=== PATIENT | female | born 1955 | race Caucasian/White ===

== ENCOUNTER 2020-02-08 13:19 | Emergency (ER) | payer OTHER ==
[2020-02-08 13:26] VITALS: RESP 18
--- NOTE | 2020-02-08 13:55 | ED ---
General Adult HPI - General Chief complaint: Chest Pain Stated complaint: Chest Pain Time Seen by Provider: 02/08/20 13:27 Source: patient Mode of arrival: ambulatory Limitations: no limitations - History of Present Illness Initial comments: Dictation was produced using [employer] dictation software. please excuse any grammatical, word or spelling errors. This patient was cared for during a federal and state declared state of emergency secondary to Covid 19 Chief Complaint: 64-year-old female with no known medical comorbidities presents today with chest discomfort History of Present Illness: Is 64-year-old female she was at work when she decided to leave to be brought to the emergency department for evaluation of chest discomfort. She refuses to identify her symptoms as pain. She is not sure if it's muscle spasms from her work. 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 Patient denies any history of cardiac disease. She describes the pain as like a buzzing sensation in her left anterior chest. She reports that it seems to be limited morewith exertional activity however does occur at rest. She denies it as pain. No associated diaphoresis nausea vomiting or dizziness. Patient states she's been having symptoms for 4 days. She denies any shortness of breath. She was tested at work for Covid that was negative this morning. The ROS documented in this emergency department record has been reviewed and confirmed by me. Those systems with pertinent positive or negative responses have been documented in the HPI. All other systems are other negative and/or noncontributory. PHYSICAL EXAM: General Impression: Alert and oriented x3, not in acute distress HEENT: Normocephalic atraumatic, extra-ocular movements intact, pupils equal and reactive to light bilaterally, mucous membranes moist. Cardiovascular: Heart regular rate and rhythm Chest: Able to complete full sentences, no retractions, no tachypnea Abdomen: abdomen soft, non-tender, non-distended, no organomegaly Musculoskeletal: Pulses present and equal in all extremities, no peripheral edema Motor: no focal deficits noted Neurological: CN II-XII grossly intact, no focal motor or sensory deficits noted Skin: Intact with no visualized rashes Psych: Normal affect and mood ED course: 64-year-old male presents with atypical chest pain. All signs upon arrival shows blood pressure 215/114, rest vital signs within acceptable limits. Patient states that she does have normally high blood pressures. She does not see a doctor for this. Laboratory evaluation obtained. CBC unremarkable. Coag panel is negative. Metabolic panel is negative. Cardiac enzymes negative. Chest x-ray is nonacute. Patient's pain is very atypical. She is to be healthy without any cardiac risk factors. Patient discharged told to follow-up with primary care physician for outpatient evaluation of chest pain and to address her high blood pressure issues. EKG interpretation: Ventricular rate 72, normal sinus rhythm,. Interval 170, QRS 86, QTC 459. No TN prolongation, no QTC prolongation, no ST or T-wave changes noted. Overall, this EKG is unremarkable - Related Data Home Medications Medication Instructions Recorded Confirmed Naproxen Sodium [Aleve] 440 mg PO Q12H PRN 02/08/20 02/08/20 Allergies Allergy/AdvReac Type Severity Reaction Status Date / Time No Known Allergies Allergy Verified 02/08/20 14:03 Review of Systems ROS Statement: Those systems with pertinent positive or pertinent negative responses have been documented in the HPI. ROS Other: All systems not noted in ROS Statement are negative. Past Medical History Past Medical History: No Reported History History of Any Multi-Drug Resistant Organisms: None Reported Past Surgical History: Appendectomy, Cholecystectomy, Tonsillectomy Past Psychological History: No Psychological Hx Reported Smoking Status: Current every day smoker Past Alcohol Use History: Occasional Past Drug Use History: None Reported General Exam Limitations: no limitations Course Vital Signs 02/08/20 02/08/20 13:23 14:15 Temperature 98.1 F Pulse Rate 72 67 Respiratory 18 18 Rate Blood Pressure 215/114 155/82 O2 Sat by Pulse 99 97 Oximetry Medical Decision Making - Lab Data Result diagrams: 02/08/20 14:12 02/08/20 14:12 Lab Results 02/08/20 02/08/20 02/08/20 Range/Units 14:12 14:12 14:12 WBC 8.6 (3.8-10.6) k/uL RBC 4.77 (3.80-5.40) m/uL Hgb 15.0 (11.4-16.0) gm/dL Hct 44.6 (34.0-46.0) % MCV 93.6 (80.0-100.0) fL MCH 31.4 (25.0-35.0) pg MCHC 33.6 (31.0-37.0) g/dL RDW 12.6 (11.5-15.5) % Plt Count 317 (150-450) k/uL MPV 7.5 Neutrophils % 63 % Lymphocytes % 28 % Monocytes % 5 % Eosinophils % 2 % Basophils % 1 % Neutrophils # 5.4 (1.3-7.7) k/uL Lymphocytes # 2.4 (1.0-4.8) k/uL Monocytes # 0.4 (0-1.0) k/uL Eosinophils # 0.2 (0-0.7) k/uL Basophils # 0.1 (0-0.2) k/uL PT 10.3 (9.0-12.0) sec INR 1.0 (<1.2) APTT 25.5 (22.0-30.0) sec Sodium 137 (137-145) mmol/L Potassium 4.5 (3.5-5.1) mmol/L Chloride 108 H (98-107) mmol/L Carbon Dioxide 22 (22-30) mmol/L Anion Gap 7 mmol/L BUN 7 (7-17) mg/dL Creatinine 0.64 (0.52-1.04) mg/dL Est GFR (CKD-EPI)AfAm >90 (>60 ml/min/1.73 sqM) Est GFR (CKD-EPI)NonAf >90 (>60 ml/min/1.73 sqM) Glucose 95 (74-99) mg/dL Calcium 9.3 (8.4-10.2) mg/dL Magnesium 2.1 (1.6-2.3) mg/dL Total Bilirubin 0.8 (0.2-1.3) mg/dL AST 35 (14-36) U/L ALT 13 (4-34) U/L Alkaline Phosphatase 78 (38-126) U/L Troponin I (0.000-0.034) ng/mL Total Protein 7.1 (6.3-8.2) g/dL Albumin 4.3 (3.5-5.0) g/dL 02/08/20 Range/Units 14:12 WBC (3.8-10.6) k/uL RBC (3.80-5.40) m/uL Hgb (11.4-16.0) gm/dL Hct (34.0-46.0) % MCV (80.0-100.0) fL MCH (25.0-35.0) pg MCHC (31.0-37.0) g/dL RDW (11.5-15.5) % Plt Count (150-450) k/uL MPV Neutrophils % % Lymphocytes % % Monocytes % % Eosinophils % % Basophils % % Neutrophils # (1.3-7.7) k/uL Lymphocytes # (1.0-4.8) k/uL Monocytes # (0-1.0) k/uL Eosinophils # (0-0.7) k/uL Basophils # (0-0.2) k/uL PT (9.0-12.0) sec INR (<1.2) APTT (22.0-30.0) sec Sodium (137-145) mmol/L Potassium (3.5-5.1) mmol/L Chloride (98-107) mmol/L Carbon Dioxide (22-30) mmol/L Anion Gap mmol/L BUN (7-17) mg/dL Creatinine (0.52-1.04) mg/dL Est GFR (CKD-EPI)AfAm (>60 ml/min/1.73 sqM) Est GFR (CKD-EPI)NonAf (>60 ml/min/1.73 sqM) Glucose (74-99) mg/dL Calcium (8.4-10.2) mg/dL Magnesium (1.6-2.3) mg/dL Total Bilirubin (0.2-1.3) mg/dL AST (14-36) U/L ALT (4-34) U/L Alkaline Phosphatase (38-126) U/L Troponin I <0.012 (0.000-0.034) ng/mL Total Protein (6.3-8.2) g/dL Albumin (3.5-5.0) g/dL Disposition Clinical Impression: Chest pain Disposition: HOME SELF-CARE Condition: Good Instructions (If sedation given, give patient instructions): Chest Pain (ED) Is patient prescribed a controlled substance at d/c from ED?: No Referrals: None,Stated [Primary Care Provider] - 1-2 days Time of Disposition: 14:58
[2020-02-08 14:27] LABS: Basophils # (A) 0.1 k/uL (0-0.2); Basophils % (A) 1 %; Eosinophils # (A) 0.2 k/uL (0-0.7); Eosinophils % (A) 2 %; HCT 44.6 % (34.0-46.0); Lymphocytes # (A) 2.4 k/uL (1.0-4.8); Lymphocytes % (A) 28 %; MCH 31.4 pg (25.0-35.0); MCHC 33.6 g/dL (31.0-37.0); MCV 93.6 fL (80.0-100.0); Mean Platelet Volume 7.5; Monocytes # (A) 0.4 k/uL (0-1.0); Monocytes % (A) 5 %; Neutrophils # (A) 5.4 k/uL (1.3-7.7); Neutrophils % (A) 63 %; Platelet Count 317 k/uL (150-450); RBC 4.77 m/uL (3.80-5.40); RDW 12.6 % (11.5-15.5); WBC 8.6 k/uL (3.8-10.6)
[2020-02-08 14:37] LABS: ALT 13 U/L (4-34); AST 35 U/L (14-36); African American GFR (CKD) >90 (>60 ml/min/1.73 sqM); Albumin 4.3 g/dL (3.5-5.0); Alkaline Phosphatase 78 U/L (38-126); Anion Gap 7 mmol/L; Blood Urea Nitrogen 7 mg/dL (7-17); Calcium 9.3 mg/dL (8.4-10.2); Carbon Dioxide 22 mmol/L (22-30); Chloride 108 mmol/L (98-107); Glucose 95 mg/dL (74-99); Magnesium 2.1 mg/dL (1.6-2.3); Non-African American GFR(CKD) >90 (>60 ml/min/1.73 sqM); Potassium 4.5 mmol/L (3.5-5.1); Sodium 137 mmol/L (137-145); Total Bilirubin 0.8 mg/dL (0.2-1.3); Total Protein 7.1 g/dL (6.3-8.2)
[2020-02-08 14:38] LABS: Partial Thromboplastin Time 25.5 sec (22.0-30.0); Prothrombin Time 10.3 sec (9.0-12.0)
[2020-02-08 15:25] VITALS: BP 169/87; PULSE 70; TEMP 98
--- NOTE | 2020-02-08 16:23 | XR ---
EXAMINATION TYPE: XR chest 2V DATE OF EXAM: 02/08/2020 COMPARISON: None HISTORY: 64-year-old female with chest pain TECHNIQUE: PA and lateral views FINDINGS: The cardiomediastinal silhouette, aorta, and pulmonary vasculature are within normal limits. Lungs an d pleural spaces are clear. IMPRESSION: No acute cardiopulmonary process.
== END 2020-02-08 15:24 | disposition home or self-care (01) ==
LOC: EC 13:19
DX: R07.89 Other chest pain (principal); I10 Essential (primary) hypertension; F17.200 Nicotine dependence, unspecified, uncomplicated
CPT/HCPCS: 36415; 71046; 80053; 83735; 84484; 85025; 85610; 85730; 93005; 99285

== ENCOUNTER 2022-08-29 15:59 | Inpatient (IN) | payer MEDICARE, OTHER ==
--- NOTE | 2022-08-29 16:42 | XR ---
EXAMINATION TYPE: XR chest 2V DATE OF EXAM: 08/29/2022 4:36 PM COMPARISON: Chest radiographs from 02/08/2020. TECHNIQUE: XR chest 2V Frontal and lateral views of the chest. CLINICAL INDICATION:Female, 66 years old with history of COUGH WEAKNESS; FINDINGS: Lungs/Pleura: There is flattening of the diaphragm with increased lucency of the lungs. No evidence o f pneumothorax, pleural effusion or focal consolidation. Pulmonary vascularity: Unremarkable. Heart/mediastinum: Cardiomediastinal silhouette is unremarkable. Musculoskeletal: No acute osseous pathology. IMPRESSION: 1. No acute cardiopulmonary disease process. 2. COPD changes.
[2022-08-29 17:38] LABS: Partial Thromboplastin Time 26.9 sec (22.0-30.0); Prothrombin Time 10.8 sec (9.0-12.0)
[2022-08-29 17:39] LABS: Basophils # (A) 0.1 k/uL (0-0.2); Basophils % (A) 0 %; Eosinophils # (A) 0.4 k/uL (0-0.7); Eosinophils % (A) 2 %; HCT 37.2 % (34.0-46.0); HGB 11.7 gm/dL (11.4-16.0); Hypochromasia Slight; Lymphocytes % (A) 8 %; MCH 30.5 pg (25.0-35.0); MCHC 31.4 g/dL (31.0-37.0); MCV 97.1 fL (80.0-100.0); Mean Platelet Volume 7.7; Monocytes # (A) 0.9 k/uL (0-1.0); Monocytes % (A) 3 %; Neutrophils % (A) 86 %; RBC 3.83 m/uL (3.80-5.40); RDW 13.5 % (11.5-15.5); WBC 26.6 k/uL (3.8-10.6)
[2022-08-29 17:46] LABS: ALT 89 U/L (4-34); AST 198 U/L (14-36); African American GFR (CKD) 78 (>60 ml/min/1.73 sqM); Albumin 2.9 g/dL (3.5-5.0); Alkaline Phosphatase 298 U/L (38-126); Anion Gap 11 mmol/L; Blood Urea Nitrogen 19 mg/dL (7-17); Calcium 8.6 mg/dL (8.4-10.2); Carbon Dioxide 24 mmol/L (22-30); Chloride 103 mmol/L (98-107); Glucose 112 mg/dL (74-99); Non-African American GFR(CKD) 67 (>60 ml/min/1.73 sqM); Potassium 4.4 mmol/L (3.5-5.1); Sodium 138 mmol/L (137-145); Total Bilirubin 0.6 mg/dL (0.2-1.3); Total Protein 6.2 g/dL (6.3-8.2)
[2022-08-29] MEDS ORDERED: SODIUM CHLORIDE 0.9% 500 ML 500 ML IV STA (17:51)
--- NOTE | 2022-08-29 17:52 | ED ---
Recheck HPI - General Chief Complaint: Recheck/Abnormal Lab/Rx Stated Complaint: ABN LABS Time Seen by Provider: 08/29/22 16:57 Source: patient Mode of arrival: ambulatory Limitations: no limitations - History of Present Illness Initial Comments: This patient is a 66-year-old woman who presents here after receiving a phone call from her primary physician's office telling her that a number of lab tests she had yesterday were abnormal. The patient states that she had gone to see Dr. Gomez because she was feeling some fatigue and generalized weakness. She states that her legs were achy. She states it felt like she had done some exercise but really hadn't. She had gone to the clinic yesterday and had blood drawn. She states that today she was feeling better but she received a phone call telling her to go to the emergency department have some lab tests repeated. Currently patient denies fever or chills. No chest pain, dyspnea or cough. No back or abdominal pain. She does have a little bit of myalgia. No change in urination or bowel movements noted MD Complaint: abnormal lab -: days(s) Returns Today for: Called Because of Abnormal Lab/Test Symptoms Since Prior Visit: improved Context: called for abnormal lab result Associated Symptoms: malaise, other - Related Data Previous Rx's Medication Instructions Recorded amLODIPine [Norvasc] 5 mg PO DAILY #30 tab 08/31/22 Allergies Allergy/AdvReac Type Severity Reaction Status Date / Time No Known Allergies Allergy Verified 08/29/22 20:36 Review of Systems ROS Statement: Those systems with pertinent positive or pertinent negative responses have been documented in the HPI. ROS Other: All systems not noted in ROS Statement are negative. Constitutional: Denies: fever, chills Respiratory: Denies: cough, dyspnea Cardiovascular: Denies: chest pain, palpitations Endocrine: Reports: fatigue Gastrointestinal: Denies: abdominal pain, nausea, vomiting Genitourinary: Denies: dysuria, hematuria Musculoskeletal: Reports: myalgia. Denies: back pain, arthralgia Skin: Denies: rash Neurological: Denies: headache, weakness, numbness Past Medical History Past Medical History: Hypertension History of Any Multi-Drug Resistant Organisms: None Reported Past Surgical History: Appendectomy, Cholecystectomy, Tonsillectomy Past Psychological History: No Psychological Hx Reported Smoking Status: Current every day smoker Past Alcohol Use History: Occasional Past Drug Use History: None Reported General Exam Limitations: no limitations General appearance: alert, in no apparent distress Head exam: Present: atraumatic, normocephalic Eye exam: Present: normal appearance. Absent: scleral icterus, conjunctival injection Neck exam: Present: normal inspection Respiratory exam: Present: normal lung sounds bilaterally. Absent: respiratory distress, wheezes, rales, rhonchi, stridor, accessory muscle use Cardiovascular Exam: Present: regular rate, normal rhythm, normal heart sounds. Absent: systolic murmur, diastolic murmur, rubs, gallop GI/Abdominal exam: Present: soft. Absent: distended, tenderness, guarding, rebound, rigid, mass Extremities exam: Present: normal inspection, normal capillary refill. Absent: pedal edema, calf tenderness Back exam: Present: normal inspection. Absent: CVA tenderness (R), CVA tenderness (L) Neurological exam: Present: alert Skin exam: Present: warm, dry, intact, normal color. Absent: rash Course Vital Signs 08/29/22 08/29/22 08/29/22 16:02 17:01 21:42 Temperature 97.8 F 98.3 F Pulse Rate 117 H 105 H 82 Respiratory 20 18 18 Rate Blood Pressure 143/74 142/80 163/80 O2 Sat by Pulse 98 99 97 Oximetry Medical Decision Making - Medical Decision Making This patient is 66-year-old woman here for repeat lab testing after finding hematologic abnormalities on routine testing yesterday. The patient does have leukocytosis and thrombocytosis. Discussed case with Dr. [place], who states that they would see the patient in the hospital for some additional workup. Case discussed with sound physician who will admit. The patient had chest x-ray which I interpreted as being negative for acute infiltrate, pneumothorax, congestive heart failure Was pt. sent in by a medical professional or institution (, PA, WOOD SCRAP HANDLER, urgent care, hospital, or alf...) When possible be specific @ -[The patient was directed to emergency department by her physician after abnormal lab tests Did you speak to anyone other than the patient for history (EMS, parent, family, police, friend...)? What history was obtained from this source @ -[No] Did you review nursing and triage notes (agree or disagree)? Why? @ -[I reviewed and agree with nursing and triage notes] Were old charts reviewed (outside hosp., previous admission, EMS record, old EKG, old radiological studies, urgent care reports/EKG's, alf records)? Report findings @ -[ old charts were reviewed] Differential Diagnosis (chest pain, altered mental status, abdominal pain women, abdominal pain men, vaginal bleeding, weakness, fever, dyspnea, syncope, heada davi, dizziness, GI bleed, back pain, seizure, CVA, palpatations, mental health, musculoskeletal)? @ -[Differential Weakness: Hypoglycemia, shock, sepsis, hyponatremia, anemia, infection, CA, ETOH, adverse medicine reaction, overdose, stroke, this is not meant to be an all-inclusive list. EKG interpreted by me (3pts min.). @ -[As above] X-rays interpreted by me (1pt min.). @ -[As above CT interpreted by me (1pt min.). @ -[None done] U/S interpreted by me (1pt. min.). @ -[None done] What testing was considered but not performed or refused? (CT, X-rays, U/S, labs)? Why? @ -[None] What meds were considered but not given or refused? Why? @ -[None] Did you discuss the management of the patient with other professionals (professionals i.e. , PA, WOOD SCRAP HANDLER, lab, RT, psych nurse, social work job titles, mail sorter, teacher, chief clinical officer, catalytic case operator)? Give summary @ -[This case was discussed with the oncologist as well as the admitting physician. Was smoking cessation discussed for >3mins.? @ -[No] Was critical care preformed (if so, how long)? @ -[No] Were there social determinants of health that impacted care today? How? (H omelessness, low income, unemployed, alcoholism, drug addiction, transportation, low edu. Level, literacy, decrease access to med. care, long term, rehab)? @ -[No] Was there de-escalation of care discussed even if they declined (Discuss DNR or withdrawal of care, Hospice)? DNR status @ -[No] What co-morbidities impacted this encounter? (DM, HTN, Smoking, COPD, CAD, Cancer, CVA, ARF, Chemo, Hep., AIDS, mental health diagnosis, sleep apnea, morbid obesity)? @ -[None] Was patient admitted / discharged? Hospital course, mention meds given and route, prescriptions, significant lab abnormalities, going to OR and other pertinent info. @ -[Patient is admitted for further testing and for hematology consultation. Undiagnosed new problem with uncertain prognosis? @ -[No] Drug Therapy requiring intensive monitoring for toxicity (Heparin, Nitro, Insulin, Cardizem)? @ -[No] Were any procedures done? @ -[No] Diagnosis/symptom? @ -[Acute leukocytosis Acute thrombocytosis Acute, or Chronic, or Acute on Chronic? @ -[Acute Uncomplicated (without systemic symptoms) or Complicated (systemic symptoms)? @ -[Uncomplicated Side effects of treatment? @ -[No] Exacerbation, Progression, or Severe Exacerbation? @ -[No] Poses a threat to life or bodily function? How? (Chest pain, USA, CA, pneumonia, PE, COPD, DKA, ARF, appy, cholecystitis, CVA, Diverticulitis, Homicidal, Suicidal, threat to staff... and all critical care pts) @ -[No] - Lab Data Result diagrams: 08/31/22 05:51 08/31/22 05:51 Lab Results 08/29/22 08/29/22 08/29/22 Range/Units 16:55 16:55 16:55 WBC 26.6 H (3.8-10.6) k/uL RBC 3.83 (3.80-5.40) m/uL Hgb 11.7 (11.4-16.0) gm/dL Hct 37.2 (34.0-46.0) % MCV 97.1 (80.0-100.0) fL MCH 30.5 (25.0-35.0) pg MCHC 31.4 (31.0-37.0) g/dL RDW 13.5 (11.5-15.5) % Plt Count 1085 H* (150-450) k/uL MPV 7.7 Neutrophils % 86 % Lymphocytes % 8 % Monocytes % 3 % Eosinophils % 2 % Basophils % 0 % Neutrophils # 23.0 H (1.3-7.7) k/uL Lymphocytes # 2.0 (1.0-4.8) k/uL Monocytes # 0.9 (0-1.0) k/uL Eosinophils # 0.4 (0-0.7) k/uL Basophils # 0.1 (0-0.2) k/uL Manual Slide Review Performed Hypochromasia Slight PT 10.8 (9.0-12.0) sec INR 1.0 (<1.2) APTT 26.9 (22.0-30.0) sec Sodium 138 (137-145) mmol/L Potassium 4.4 (3.5-5.1) mmol/L Chloride 103 (98-107) mmol/L Carbon Dioxide 24 (22-30) mmol/L Anion Gap 11 mmol/L BUN 19 H (7-17) mg/dL Creatinine 0.89 (0.52-1.04) mg/dL Est GFR (CKD-EPI)AfAm 78 (>60 ml/min/1.73 sqM) Est GFR (CKD-EPI)NonAf 67 (>60 ml/min/1.73 sqM) Glucose 112 H (74-99) mg/dL Calcium 8.6 (8.4-10.2) mg/dL Total Bilirubin 0.6 (0.2-1.3) mg/dL AST 198 H (14-36) U/L ALT 89 H (4-34) U/L Alkaline Phosphatase 298 H (38-126) U/L Creatine Kinase <20 L (30-135) U/L CK-MB (CK-2) (0.0-2.4) ng/mL Total Protein 6.2 L (6.3-8.2) g/dL Albumin 2.9 L (3.5-5.0) g/dL 08/29/22 Range/Units 16:55 WBC (3.8-10.6) k/uL RBC (3.80-5.40) m/uL Hgb (11.4-16.0) gm/dL Hct (34.0-46.0) % MCV (80.0-100.0) fL MCH (25.0-35.0) pg MCHC (31.0-37.0) g/dL RDW (11.5-15.5) % Plt Count (150-450) k/uL MPV Neutrophils % % Lymphocytes % % Monocytes % % Eosinophils % % Basophils % % Neutrophils # (1.3-7.7) k/uL Lymphocytes # (1.0-4.8) k/uL Monocytes # (0-1.0) k/uL Eosinophils # (0-0.7) k/uL Basophils # (0-0.2) k/uL Manual Slide Review Hypochromasia PT (9.0-12.0) sec INR (<1.2) APTT (22.0-30.0) sec Sodium (137-145) mmol/L Potassium (3.5-5.1) mmol/L Chloride (98-107) mmol/L Carbon Dioxide (22-30) mmol/L Anion Gap mmol/L BUN (7-17) mg/dL Creatinine (0.52-1.04) mg/dL Est GFR (CKD-EPI)AfAm (>60 ml/min/1.73 sqM) Est GFR (CKD-EPI)NonAf (>60 ml/min/1.73 sqM) Glucose (74-99) mg/dL Calcium (8.4-10.2) mg/dL Total Bilirubin (0.2-1.3) mg/dL AST (14-36) U/L ALT (4-34) U/L Alkaline Phosphatase (38-126) U/L Creatine Kinase (30-135) U/L CK-MB (CK-2) 0.3 (0.0-2.4) ng/mL Total Protein (6.3-8.2) g/dL Albumin (3.5-5.0) g/dL - EKG Data -: EKG Interpreted by Ut EKG shows normal: sinus rhythm, axis (Normal), intervals (Normal), QRS complexes (Normal), ST-T waves (Normal) Rate: tachycardia (Rate 113 bpm) Disposition Clinical Impression: Leukocytosis, Thrombocytosis Disposition: ADMITTED IP TO THIS [facility] Condition: Good Is patient prescribed a controlled substance at d/c from ED?: No
[2022-08-29 18:25] LABS: Platelet Count 1085 k/uL (150-450)
[2022-08-29 19:25] LABS: Creatine Kinase <20 U/L (30-135)
[2022-08-29] MEDS ORDERED: ACETAMINOPHEN TAB 325 MG TAB PO PRN (20:20)
[2022-08-29] MEDS ORDERED: NALOXONE 0.4 MG/ML 1 ML VIAL IV PRN (20:20)
[2022-08-29] MEDS ORDERED: MAG HYDROX/AL HYDROX/SIMETH 30 ML CUP PO PRN (20:20)
[2022-08-29] MEDS ORDERED: SODIUM CHLORIDE 0.9% 1,000 ML IV SCH (20:30)
--- NOTE | 2022-08-30 03:01 | P.HPIM ---
History of Present Illness H&P Date: 08/29/22 Chief Complaint: abnormal blood work 66 year old female with no significant past medical history patient was doing routine blood work with her PCP , when she was called with abnormal results and told to go to the hospital for evaluation by hematology she denies any fever, chills, headache, focal neuro deficits, nausea , vomiting, abd pain , or GI bleeding , denies any recent illness or hospital stay she was found to have elevated WBC and platelets. patient admits to smoking , denies any illicit drugs or alcohol patient does reports some night sweats episodes , but denies any significant weight loss. Review of Systems Pertinent positives as noted in HPI. All other systems were reviewed and are negative Past Medical History Past Medical History: Hypertension History of Any Multi-Drug Resistant Organisms: None Reported Past Surgical History: Appendectomy, Cholecystectomy, Tonsillectomy Past Psychological History: No Psychological Hx Reported Smoking Status: Current every day smoker Past Alcohol Use History: Occasional Past Drug Use History: None Reported Medications and Allergies Home Medications Medication Instructions Recorded Confirmed Type No Known Home Medications 08/29/22 08/29/22 History Allergies Allergy/AdvReac Type Severity Reaction Status Date / Time No Known Allergies Allergy Verified 08/29/22 20:36 Physical Exam Vitals: Vital Signs Temp Pulse Pulse Resp BP BP Pulse Ox 08/30/22 01:47 100.2 F H 110 H 18 133/63 94 L 08/29/22 21:56 100.1 F H 114 H 17 136/74 96 08/29/22 21:42 82 18 163/80 97 08/29/22 17:01 98.3 F 105 H 18 142/80 99 08/29/22 16:02 97.8 F 117 H 20 143/74 98 Intake and Output 08/29/22 08/29/22 08/30/22 14:59 22:59 06:59 Other: # Voids 1 Weight 66.678 kg Constitutional: No acute distress, conversant, pleasant Eyes: Anicteric sclerae, moist conjunctiva, Pupils equal round reactive to light ENMT: NC/AT Oropharynx clear, no erythema, or exudates Neck: Supple, no masses, or JVD No carotid bruits No thyromegaly Lungs: Clear to auscultation Clear to percussion Normal respiratory effort, no accessory muscle use Cardiovascular: Heart regular in rate and rhythm, No murmurs, gallops, or rubs No peripheral edema Abdominal: Soft Nontender, no guarding, rebound or rigidity Abdomen moving with respiration Normoactive bowel sounds No palpable mass No abdominal wall hernia noted Skin: Normal temperature, tone, texture, turgor Extremities: No digital cyanosis No clubbing Pedal pulses intact and symmetrical Radial pulses intact and symmetrical No calf tenderness Psychiatric: Alert and oriented to person, place and time Appropriate affect Neuro Muscles Strength 5/5 in all 4 extremities Sensation to light touch grossly present throughout Cranial nerves II-XII grossly intact Lymphatics: no palpable cervical or supraclavicular lymph nodes Results CBC & Chem 7: 08/29/22 16:55 08/29/22 16:55 Labs: Abnormal Lab Results - Last 24 Hours (Table) 08/29/22 08/29/22 Range/Units 16:55 16:55 WBC 26.6 H (3.8-10.6) k/uL Plt Count 1085 H* (150-450) k/uL Neutrophils # 23.0 H (1.3-7.7) k/uL BUN 19 H (7-17) mg/dL Glucose 112 H (74-99) mg/dL AST 198 H (14-36) U/L ALT 89 H (4-34) U/L Alkaline Phosphatase 298 H (38-126) U/L Creatine Kinase <20 L (30-135) U/L Total Protein 6.2 L (6.3-8.2) g/dL Albumin 2.9 L (3.5-5.0) g/dL Thrombosis Risk Factor Assmnt - Choose All That Apply Any of the Below Risk Factors Present?: No Each Risk Factor Represents 2 Points: Age 61-74 years Thrombosis Risk Factor Assessment Total Risk Factor Score: 2 Thrombosis Risk Factor Assessment Level: Low Risk Assessment and Plan Assessment: 66 year old female with no signficant past medical history coming in for abnormal blood work , i discussed the case with ED doc , and i accepted the admission for hematology workup with anticipated length of stay < 2 midnights leukocytosis and thrombocytosis check ferritin check blood cultures hematolgoy consult D5 0.45% at 75 cc per hour initiate hydroxyurea and low dose aspirin patient counseled to discontinue smoking new hypertension initiate on amlodipine 5 mg po daily blood work showed platelet count > 1 mil WBC 26 liver enzymes elevated AST 198, ALT 89, ALK phos 298 check abd US , assess spleen and liver full code DVT PPX heparin sc tid 5000 units
[2022-08-30] MEDS: DEXTROSE 5%-0.45% NACL 1,000 ML IV SCH ×2 (06:14→17:45)
[2022-08-30 07:35] LABS: Basophils # (A) 0.1 k/uL (0-0.2); Basophils % (A) 0 %; Eosinophils # (A) 0.2 k/uL (0-0.7); Eosinophils % (A) 1 %; HCT 30.8 % (34.0-46.0); Hypochromasia Slight; Lymphocytes # (A) 2.3 k/uL (1.0-4.8); Lymphocytes % (A) 12 %; MCH 29.6 pg (25.0-35.0); MCHC 30.4 g/dL (31.0-37.0); MCV 97.5 fL (80.0-100.0); Mean Platelet Volume 9.1; Monocytes # (A) 0.9 k/uL (0-1.0); Monocytes % (A) 5 %; Neutrophils # (A) 15.6 k/uL (1.3-7.7); Neutrophils % (A) 81 %; Platelet Count 763 k/uL (150-450); RBC 3.16 m/uL (3.80-5.40); RDW 13.6 % (11.5-15.5); WBC 19.2 k/uL (3.8-10.6)
[2022-08-30 07:37] LABS: HGB 9.4 gm/dL (11.4-16.0)
[2022-08-30] MEDS: amLODIPine 5 MG TAB PO SCH (08:26)
[2022-08-30] MEDS: ASPIRIN 81 MG PO SCH (08:26)
[2022-08-30] MEDS: HYDROXYUREA 500 MG CAP PO SCH (08:27)
[2022-08-30] MEDS ORDERED: HYDROXYUREA 500 MG CAP PO SCH (09:00)
--- NOTE | 2022-08-30 09:18 | US ---
EXAMINATION TYPE: US abdomen limited DATE OF EXAM: 08/30/2022 COMPARISON: NONE CLINICAL INDICATION: Female, 66 years old with history of rule out splenomegaly, elevated liver enzym es; TECHNIQUE: Multiple sonographic images of the right upper quadrant are obtained. FINDINGS: EXAM MEASUREMENTS: Liver Length: 14.8 cm Gallbladder Wall: Surgically absent CBD: 0.9 cm Right Kidney: 9.8 x 4.2 x 5.0 cm Spleen 8 cm KELP CUTTER NOTES: Pancreas: Tail obscured by overlying bowel gas Liver: Prominent ligament teres Gallbladder: Surgically absent Evidence for sonographic Devine's sign: No CBD: 9 mm Right Kidney: No hydronephrosis or masses seen IMPRESSION: 1. Postcholecystectomy. Common bile duct measures 9 mm at the upper limits of normal for postcholecys tectomy patient. 2. Spleen is normal in size and appearance.
[2022-08-30 13:12] LABS: Creatine Kinase <20 U/L (30-135)
[2022-08-30 13:25] LABS: C Reactive Protein 24.3 mg/dL (<1.0)
--- NOTE | 2022-08-30 13:43 | P.PN ---
Subjective Progress Note Date: 08/30/22 Hospital Course: 61-year-old female with nicotine dependence presenting from her PCP office after routine blood work, was noted to have leukocytosis and thrombocytosis. She has been having low-grade fevers as well as night sweats. She has not noticed any new rashes, bleeding, new lumps or bumps. In the ED, temperature was 97.8, pulse 117, respiratory rate 20, blood pressure 143/74, saturating at 98% on room air. White blood cell count 26.6, platelet count 1085, elevated transaminases. Chest x-ray no acute process. EKG shows sinus tachycardia. Patient admitted for further workup for possible malignancy. Hematology consulted. Subjective: In seen and examined at bedside. No acute events overnight. No new complaints Pertinent positives and negatives as discussed above, a complete review of systems was performed and all other systems are negative. Vitals Signs Reviewed. General: nontoxic, no distress, appears at stated age Derm: warm, dry Head: atraumatic, normocephalic, symmetric Eyes: EOMI, no lid lag, anicteric sclera Mouth: no lip lesion, mucus membranes moist Cardiovascular: S1S2 reg, no murmur Lungs: CTA bilateral, no rhonchi, no rales , no accessory muscle use Abdominal: soft, nontender to palpation, no guarding, no appreciable organomegaly Ext: no gross muscle atrophy, no edema, no contractures Neuro: CN II-XI grossly intact, no focal neuro deficits Psych: Alert, oriented, appropriate affect Data Reviewed Today: Pertinent Labs: WBC 19.2, hemoglobin 9.4, platelets 763, CRP 24.3, ferritin 1069 Imaging: Liver ultrasound shows CBD 9 mm Assessment and Plan: Active: Leukocytosis Thrombocytosis Normocytic anemia Transaminitis Hypertension Nicotine dependence -Patient has low-grade fevers as well as night sweats, concerning for malignancy -Hematology consulted -already started on hydroxyurea and aspirin -Liver ultrasound does not show any acute liver process -Amlodipine 5 mg daily -Counseled regarding his smoking cessation DVT ppx: Lovenox Code status: Full code Anticipated discharge place: Pending clinical course Anticipated discharge time: Pending clinical course Objective - Vital Signs Vital signs: Vital Signs Temp 98.5 F 08/30/22 12:26 Pulse 93 08/30/22 12:26 Resp 18 08/30/22 12:26 BP 125/67 08/30/22 12:26 Pulse Ox 99 08/30/22 12:26 FiO2 Intake & Output 08/29/22 08/30/22 08/30/22 18:59 06:59 18:59 Intake Total 900 Balance 900 Weight 66.678 kg 66.678 kg Intake: Intake, IV Titration 900 Amount Sodium Chloride 0.9% 1, 900 000 ml @ 75 mls/hr IV . [id number] [facility] Rx#:[id number] Other: Voiding Method Toilet # Voids 1 - Labs CBC & Chem 7: 08/30/22 04:53 08/29/22 16:55 Labs: Abnormal Lab Results - Last 24 Hours (Table) 08/29/22 08/29/22 08/30/22 Range/Units 16:55 16:55 04:53 WBC 26.6 H (3.8-10.6) k/uL RBC (3.80-5.40) m/uL Hgb (11.4-16.0) gm/dL Hct (34.0-46.0) % MCHC (31.0-37.0) g/dL Plt Count 1085 H* (150-450) k/uL Neutrophils # 23.0 H (1.3-7.7) k/uL BUN 19 H (7-17) mg/dL Glucose 112 H (74-99) mg/dL Ferritin 1069.0 H (10.0-291.0) ng/mL AST 198 H (14-36) U/L ALT 89 H (4-34) U/L Alkaline Phosphatase 298 H (38-126) U/L Creatine Kinase <20 L (30-135) U/L C-Reactive Protein (<1.0) mg/dL Total Protein 6.2 L (6.3-8.2) g/dL Albumin 2.9 L (3.5-5.0) g/dL 08/30/22 08/30/22 Range/Units 04:53 12:08 WBC 19.2 H (3.8-10.6) k/uL RBC 3.16 L (3.80-5.40) m/uL Hgb 9.4 L D (11.4-16.0) gm/dL Hct 30.8 L (34.0-46.0) % MCHC 30.4 L (31.0-37.0) g/dL Plt Count 763 H (150-450) k/uL Neutrophils # 15.6 H (1.3-7.7) k/uL BUN (7-17) mg/dL Glucose (74-99) mg/dL Ferritin (10.0-291.0) ng/mL AST (14-36) U/L ALT (4-34) U/L Alkaline Phosphatase (38-126) U/L Creatine Kinase <20 L (30-135) U/L C-Reactive Protein 24.3 H (<1.0) mg/dL Total Protein (6.3-8.2) g/dL Albumin (3.5-5.0) g/dL
[2022-08-30 16:36] LABS: % Iron Saturation 11.56 (12.00-45.00); Iron 17 UG/DL (50-170); Rheumatoid Factor, Qnt <15 IU/mL (0-15); Total Iron Binding Capacity 147 UG/DL (228-460)
[2022-08-30 16:45] LABS: Hepatitis A Antibody IgM Nonreactive; Hepatitis B Core IgM Nonreactive; Hepatitis B Surface Antigen Nonreactive; Hepatitis C IgG Antibody Nonreactive
[2022-08-30 18:59] VITALS: RESP 16
--- NOTE | 2022-08-30 22:53 | P.CONS ---
History of Present Illness - Reason for Consult Consult date: 08/30/22 thrombocytosis/leukocytosis Requesting physician: Anup Tomlin - Chief Complaint weakness, fatigue, leg cramping - History of Present Illness Patient is a 66-year-old female who presented to the ER for abnormal labs. Patient presented to her PCP with complaints of leg cramping over the last 2 weeks and fatigue and generalized weakness at which time a CBC revealed shon kocytosis and thrombocytosis. For which we were consulted for. Upon admission WBCs 26.6, platelets 1085. LFTs elevated. Chest x-ray revealed no acute cardiac cardiopulmonary disease processes. Abdominal ultrasound revealed post cholecystectomy. Common bile duct measures 9 mm at the upper limits of normal for post cholecystectomy patient. Spleen is normal in size and appearance. Patient denies any recent illnesses. Denies cough. Denies fever or chills. Denies urinary frequency and dysuria. Patient denies history of any autoimmune disorders. Counts have improved today, WBC 19.2, platelets 763. T max 100.2 Review of Systems 10 point ROS is negative except as stated in HPI Past Medical History Past Medical History: Hypertension History of Any Multi-Drug Resistant Organisms: None Reported Past Surgical History: Appendectomy, Cholecystectomy, Tonsillectomy Past Psychological History: No Psychological Hx Reported Smoking Status: Current every day smoker Past Alcohol Use History: Occasional Past Drug Use History: None Reported Medications and Allergies Home Medications Medication Instructions Recorded Confirmed Type No Known Home Medications 08/29/22 08/29/22 History Allergies Allergy/AdvReac Type Severity Reaction Status Date / Time No Known Allergies Allergy Verified 08/29/22 20:36 Physical Exam Vitals: Vital Signs Temp Pulse Resp BP Pulse Ox 08/30/22 18:58 98.7 F 121 H 16 148/75 98 08/30/22 12:26 98.5 F 93 18 125/67 99 08/30/22 09:13 99.2 F 08/30/22 07:30 99.8 F H 103 H 16 132/65 94 L 08/30/22 01:47 100.2 F H 110 H 18 133/63 94 L Intake and Output 08/30/22 08/30/22 08/30/22 06:59 14:59 22:59 Intake Total 900 Balance 900 Intake: Intake, IV Titration 900 Amount Sodium Chloride 0.9% 1, 900 000 ml @ 75 mls/hr IV . [id number] [facility] Rx#:[id number] Other: Voiding Method Toilet Toilet # Voids 1 3 - Constitutional General appearance: average body habitus, no acute distress - EENT Eyes: anicteric sclerae, EOMI ENT: hearing grossly normal - Neck Neck: no lymphadenopathy - Respiratory Respiratory: bilateral: CTA - Cardiovascular Rhythm: regular Heart sounds: normal: S1, S2 Abnormal Heart Sounds: no systolic murmur, no diastolic murmur, no rub, no S3 Gallop, no S4 Gallop, no click, no other leg Peripheral Edema: bilateral: None - Gastrointestinal General gastrointestinal: no hepatomegaly, soft, no splenomegaly, no tenderness - Integumentary Integumentary: no cyanotic, no rash - Neurologic Neurologic: CNII-XII intact - Musculoskeletal Musculoskeletal: strength equal bilaterally - Psychiatric Psychiatric: A&O x's 3, appropriate affect, intact judgment & insight Results CBC & Chem 7: 08/30/22 04:53 08/29/22 16:55 Labs: Abnormal Lab Results - Last 24 Hours (Table) 08/30/22 08/30/22 08/30/22 Range/Units 04:53 04:53 12:08 WBC 19.2 H (3.8-10.6) k/uL RBC 3.16 L (3.80-5.40) m/uL Hgb 9.4 L D (11.4-16.0) gm/dL Hct 30.8 L (34.0-46.0) % MCHC 30.4 L (31.0-37.0) g/dL Plt Count 763 H (150-450) k/uL Neutrophils # 15.6 H (1.3-7.7) k/uL ESR 120 H (0-20) mm/hr Iron (50-170) UG/DL TIBC (228-460) UG/DL % Saturation (12.00-45.00) Transferrin (204.0-354.0) mg/dL Ferritin 1069.0 H (10.0-291.0) ng/mL Creatine Kinase (30-135) U/L C-Reactive Protein (<1.0) mg/dL 08/30/22 Range/Units 12:08 WBC (3.8-10.6) k/uL RBC (3.80-5.40) m/uL Hgb (11.4-16.0) gm/dL Hct (34.0-46.0) % MCHC (31.0-37.0) g/dL Plt Count (150-450) k/uL Neutrophils # (1.3-7.7) k/uL ESR (0-20) mm/hr Iron 17 L (50-170) UG/DL TIBC 147 L (228-460) UG/DL % Saturation 11.56 L (12.00-45.00) Transferrin 105.0 L (204.0-354.0) mg/dL Ferritin 1290.0 H (10.0-291.0) ng/mL Creatine Kinase <20 L (30-135) U/L C-Reactive Protein 24.3 H (<1.0) mg/dL Chest x-ray: report reviewed US - abdomen: report reviewed Assessment and Plan (1) Leukocytosis Current Visit: Yes Status: Acute Priority: Medium Code(s): D72.829 - ELEVATED WHITE BLOOD CELL COUNT, UNSPECIFIED SNOMED Code(s): 188867437 (2) Thrombocytosis Current Visit: Yes Status: Acute Priority: Medium Code(s): D75.839 - THROMBOCYTOSIS, UNSPECIFIED SNOMED Code(s): 4323624 Plan: Thrombocytosis/Leukocytosis: -Upon admission WBCs 26.6, platelets 1085. Counts improved today, WBC 19.2, platelets 763 -LFTs also found to be elevated. Chest x-ray revealed no acute cardiac cardiopulmonary disease processes. Abdominal ultrasound revealed post cholecystectomy. Common bile duct measures 9 mm at the upper limits of normal for post cholecystectomy patient. Spleen is normal in size and appearance. T max 100.2 -It is felt that her thrombocytosis/leukocytosis is likely reactive, and less likely underlying MPD. -Will order inflammatory markers, iron studies, JOSE DE JESUS/RF, and hepatitis panel. Will f/u outpatient in the next 3-4 weeks to recheck CBC and if counts remain elevated will proceed with MPD workup -Pt updated on plan of care and is agreeable attests: I have performed H&P and developed impression and plan of care for patient, discussed with dictator. I agree with dictated note, documented as a scribe
[2022-08-31 06:32] LABS: HCT 30.7 % (34.0-46.0); HGB 9.4 gm/dL (11.4-16.0); Hypochromasia Moderate; MCH 30.2 pg (25.0-35.0); MCHC 30.5 g/dL (31.0-37.0); MCV 98.8 fL (80.0-100.0); Mean Platelet Volume 7.6; Platelet Count 810 k/uL (150-450); RBC 3.11 m/uL (3.80-5.40); RDW 13.5 % (11.5-15.5); WBC 22.4 k/uL (3.8-10.6)
[2022-08-31 06:48] LABS: African American GFR (CKD) >90 (>60 ml/min/1.73 sqM); Anion Gap 4 mmol/L; Blood Urea Nitrogen 9 mg/dL (7-17); Calcium 7.4 mg/dL (8.4-10.2); Carbon Dioxide 25 mmol/L (22-30); Chloride 107 mmol/L (98-107); Glucose 114 mg/dL (74-99); Non-African American GFR(CKD) >90 (>60 ml/min/1.73 sqM); Potassium 4.2 mmol/L (3.5-5.1); Sodium 136 mmol/L (137-145)
[2022-08-31] MEDS ORDERED: ENOXAPARIN 40 MG/0.4 ML SYRINGE SQ SCH (09:00)
[2022-08-31] MEDS: HYDROXYUREA 500 MG CAP PO SCH (09:23)
[2022-08-31] MEDS: amLODIPine 5 MG TAB PO SCH (09:23)
[2022-08-31] MEDS: ASPIRIN 81 MG PO SCH (09:23)
[2022-08-31] MEDS: DEXTROSE 5%-0.45% NACL 1,000 ML IV SCH (10:57)
[2022-08-31 12:57] LABS: Appearance,Urine Cloudy (Clear); Bacteria,Urine Many /hpf; Bilirubin,Urine Negative (Negative); Blood,Urine Large (Negative); Color,Urine Yellow; Glucose,Urine (UA) Negative (Negative); Ketones,Urine Negative (Negative); Leukocyte Esterase,Urine Trace (Negative); Mucus,Urine Occasional /hpf; Nitrite,Urine Negative (Negative); Protein,Urine Trace (Negative); RBC,Urine 13 /hpf (0-5); Specific Gravity,Urine 1.014 (1.001-1.035); Squamous Epithelial Cell,Urine 6 /hpf (0-4); Urobilinogen,Urine <2.0 mg/dL (<2.0); WBC,Urine 4 /hpf (0-5)
--- NOTE | 2022-08-31 14:06 | P.PN ---
Subjective Progress Note Date: 08/31/22 Principal diagnosis: Thrombocytosis, leukocytosis Patient has no physical complaints, she is tolerating oral intake, independently ambulatory, denies any pain. Objective - Vital Signs Vital signs: Vital Signs Temp 98.2 F 08/31/22 07:40 Pulse 102 H 08/31/22 07:40 Resp 16 08/31/22 07:40 BP 130/60 08/31/22 07:40 Pulse Ox 94 L 08/31/22 07:40 FiO2 Intake & Output 08/30/22 08/31/22 08/31/22 18:59 06:59 18:59 Intake Total 590 Balance 590 Intake: Oral 590 Other: Voiding Method Toilet Toilet Toilet # Voids 3 2 - Constitutional General appearance: Present: average body habitus, cooperative, no acute distress - EENT Eyes: Present: anicteric sclerae, EOMI ENT: Present: hearing grossly normal - Respiratory Details: Respirations even and unlabored at rest - Cardiovascular Details: Skin warm and dry to the touch - Peripheral edema leg Peripheral Edema: bilateral: None - Integumentary Integumentary: Present: pale - Neurologic Neurologic: Present: CNII-XII intact (Grossly) - Musculoskeletal Musculoskeletal: Present: strength equal bilaterally - Psychiatric Psychiatric: Absent: A&O x's 3, appropriate affect, intact judgment & insight - Labs CBC & Chem 7: 08/31/22 05:51 08/31/22 05:51 Labs: Abnormal Lab Results - Last 24 Hours (Table) 08/30/22 08/30/22 08/31/22 Range/Units 12:08 12:08 05:51 WBC 22.4 H (3.8-10.6) k/uL RBC 3.11 L (3.80-5.40) m/uL Hgb 9.4 L (11.4-16.0) gm/dL Hct 30.7 L (34.0-46.0) % MCHC 30.5 L (31.0-37.0) g/dL Plt Count 810 H (150-450) k/uL Neutrophils # 18.3 H (1.3-7.7) k/uL ESR 120 H (0-20) mm/hr Sodium (137-145) mmol/L Glucose (74-99) mg/dL Calcium (8.4-10.2) mg/dL Iron 17 L (50-170) UG/DL TIBC 147 L (228-460) UG/DL % Saturation 11.56 L (12.00-45.00) Transferrin 105.0 L (204.0-354.0) mg/dL Ferritin 1290.0 H (10.0-291.0) ng/mL Urine Appearance (Clear) Urine Protein (Negative) Urine Blood (Negative) Ur Leukocyte Esterase (Negative) Urine RBC (0-5) /hpf Ur Squamous Epith Cells (0-4) /hpf Urine Bacteria (None) /hpf Urine Mucus (None) /hpf 08/31/22 08/31/22 Range/Units 05:51 12:05 WBC (3.8-10.6) k/uL RBC (3.80-5.40) m/uL Hgb (11.4-16.0) gm/dL Hct (34.0-46.0) % MCHC (31.0-37.0) g/dL Plt Count (150-450) k/uL Neutrophils # (1.3-7.7) k/uL ESR (0-20) mm/hr Sodium 136 L (137-145) mmol/L Glucose 114 H (74-99) mg/dL Calcium 7.4 L (8.4-10.2) mg/dL Iron (50-170) UG/DL TIBC (228-460) UG/DL % Saturation (12.00-45.00) Transferrin (204.0-354.0) mg/dL Ferritin (10.0-291.0) ng/mL Urine Appearance Cloudy H (Clear) Urine Protein Trace H (Negative) Urine Blood Large H (Negative) Ur Leukocyte Esterase Trace H (Negative) Urine RBC 13 H (0-5) /hpf Ur Squamous Epith Cells 6 H (0-4) /hpf Urine Bacteria Many H (None) /hpf Urine Mucus Occasional H (None) /hpf Assessment and Plan (1) Leukocytosis Current Visit: Yes Status: Acute Priority: Medium Code(s): D72.829 - ELEVA CHRISTINE WHITE BLOOD CELL COUNT, UNSPECIFIED SNOMED Code(s): 759727006 (2) Thrombocytosis Current Visit: Yes Status: Acute Priority: Medium Code(s): D75.839 - THROMBOCYTOSIS, UNSPECIFIED SNOMED Code(s): 5679916 Plan: Leukocytosis, thrombocytosis -Persistent -Low-grade temperatures noted, most recent 100.9F. -ESR, ferritin and CRP are elevated, most consistent with a reactive situation. -LFTs are increased. Hepatitis panel was negative, bilirubin is normal. Viral? -Renal function is normal, calcium levels slightly below normal. -No reactive condition identified at this time -Will order LDH, peripheral smear, BCR-ABL and Ramy 2 Follow-up appointment in the discharge plan. Further work up can be done outpt as pt is stable.
[2022-08-31 14:24] VITALS: BP 126/69; PULSE 91; TEMP 98.4
--- NOTE | 2022-08-31 15:31 | P.DS ---
Providers Date of admission: 08/29/22 20:20 Expected date of discharge: 08/31/22 Attending physician: Dom Galicia MD Consults: 08/29/22 20:20 Consult Physician Routine Consulting Provider: Amanuel Mayfield Consult Reason/Comments: Leukocytosis. Thrombocytosis Do you want consulting provider notified?: Already Contacted Primary care physician: Jonn Gomez Hospital Course: Discharge Diagnosis: Leukoctyosis, thrombocytosis, Anemia Transaminitis HTN Nicotine dependency Hospital Course: Patient is a 61-year-old female with nicotine dependence who presented at the direction of her PCP after routine blood work demonstrated significant leukocytosis and thrombocytosis. She notes intermitted fevers at home. In the ED, temperature was 97.8, pulse 117, respiratory rate 20, blood pressure 143/74, saturating at 98% on room air Labaroatory analysis was remarkable for White blood cell count 26.6, platelet count 1085, and elevated transaminases. Chest x-ray with no acute process. EKG showed sinus tachycardia. Patient admitted for further workup for possible malignancy. Hematology consulted and felt that this might be a reactive process. Infectious work-up was unreavaleding with negative UA, Hep A,B, and C negative. She initially recieved 2 doses of hydroxyurea but hematology does not recommend any more until further testing results. Patient determined stable for dischage to the outpatient setting for further work-up. Patient is aware that she needs close follow-up for possible hematologic abnormality including possible need for bone marrow ifother testing is unrevealing. Her blood pressure was elevated and she was started on norvasc wtih good results. Follow-up: Left messge with Dr. Gomez offices regarding pending lab test. Patient should have all agre related cancer screenings completed. Follow-up with Oncology is October 04 at 4 pm- case discusse with Ana Maria and office will make note of pending labs. Pending: JaK2, BCR-ABL, Heptoglobin, LDH, peripheral smear, adolase Patient seen and examined at bedside. Doing well, no complaints at this time. Wants to go home. expresses understanding of the importance of follow-up. Vital signs reviewed and stable. General: nontoxic, no distress, appears at stated age Cardiovascular: S1S2 reg, no murmur, positive posterior tibial pulse bilateral, Lungs: CTA bilateral, no rhonchi, no rales , no accessory muscle use Abdominal: soft, nontender to palpation, no guarding, no appreciable organomegaly Ext: no gross muscle atrophy, no edema b/l lower extremities, no contractures Neuro: CN II-XI grossly intact, no focal neuro deficits Psych: Alert, oriented, appropriate affect A total of 45 minutes of time were spent preparing this complex discharge summary. Patient was discharged on 08/31/22. This dictation was prepared using [employer] voice recognition software. Though every attempt is made to correct errors during dictation some may still exist. Patient Condition at Discharge: Good Plan - Discharge Summary New Discharge Prescriptions: New amLODIPine [Norvasc] 5 mg PO DAILY #30 tab Discharge Medication List amLODIPine [Norvasc] 5 mg PO DAILY #30 tab 08/31/22 [Rx] Follow up Appointment(s)/Referral(s): Yair Romero MD [STAFF PHYSICIAN] - 10/04/22 4:00 pm (This appt is at the [facility] office. [phone]) Jonn Gomez DO [Primary Care Provider] - 09/05/22 3:20 pm Activity/Diet/Wound Care/Special Instructions: Activity: as tolerated Diet: regular Special Instructions: Seek medical attention if you develop signs of an infection such as cough, nausea, diarrhea, changes in urination. Please ensure follow-up with your primary care doctor and hematology. You have blood work results pending that will need to be followed. You should discuss with your primary care provider appropriate age related cancer screenings. Discharge Disposition: HOME SELF-CARE
[2022-08-31 16:05] LABS: Macrocytosis Slight
[2022-08-31 16:47] LABS: Eosinophils # (M) 0.45 k/uL (0-0.7); Lymphocytes # (M) 2.24 k/uL (1.0-4.8); Monocytes # (M) 1.12 k/uL (0-1.0); Neutrophils # (M) 18.59 k/uL (1.3-7.7); Neutrophils % (M) 83 %; Nucleated Red Blood Cells 0 /100 WBC (0-0); Total Cells Counted 100
== END 2022-08-31 17:14 | disposition home or self-care (01) | DRG 816 ==
LOC: EC 15:59 → 5NMEDONC 20:20
PROVIDERS: ADMIT Internal Medicine; ATTEND Internal Medicine
DX: D75.838 Other thrombocytosis (principal); D72.828 Other elevated white blood cell count; D64.9 Anemia, unspecified; R74.01 Elevation of levels of liver transaminase levels; F17.200 Nicotine dependence, unspecified, uncomplicated; I10 Essential (primary) hypertension; Z79.82 Long term (current) use of aspirin; Z79.899 Other long term (current) drug therapy; Z71.6 Tobacco abuse counseling
CPT/HCPCS: 36415; 71046; 76705; 80048; 80053; 80074; 81001; 81206; 82085; 82550; 82553; 82728; 83010; 83540; 83550; 83615; 85025; 85610; 85652; 85730; 86038; 86140; 86431; 87040; 93005; 96360; 96361; 99285

== ENCOUNTER → 2022-09-21 | Outpatient (CLI) | payer MEDICARE ==
--- NOTE | 2022-09-21 13:04 | US ---
EXAMINATION TYPE: US thyroid st tissue head/neck DATE OF EXAM: 09/21/2022 COMPARISON: NONE CLINICAL INDICATION: Female, 66 years old with history of E03.9 HYPOTHYROIDISM, UNSPECIFIED; GLAND SIZE: Right Lobe: 3.9 x 1.2 x 1.2 cm Overall Parenchyma: heterogenous Left Lobe: 2.9 x 1.2 x 1.0 cm Overall Parenchyma: heterogenous Isthmus Thickness: 0.2 cm NODULES RIGHT: # of nodules measured on right: 0 LEFT: # of nodules measured on left: 1 1. 0.9 X 0.6 x 0.5 cm, mid, Prior size: no previous TIRADS Score: 3 TIRADS Category 3: Mildly Suspicious Composition: Solid or almost completely solid (2 points). Echogenicity: Hyperechoic or isoechoic (1 point). Shape: Wider than tall (0 points). Margin: Smooth (0 points). Echogenic foci: None or large comet-tail artifacts (0 points) Recommendation: If >2.5cm: FNA; If >1.5cm: Follow up at 1,3,5 years ISTHMUS: # of nodules measured in the isthmus: 0 Bilateral neck scanned, no evidence of lymphadenopathy. IMPRESSION: Left thyroid nodule meets criteria for follow-up.
== END | disposition home or self-care (01) ==
LOC: RADUSWWP 12:07
PROVIDERS: ATTEND Family Medicine
DX: E04.1 Nontoxic single thyroid nodule (principal); E03.9 Hypothyroidism, unspecified
CPT/HCPCS: 76536

== ENCOUNTER → 2023-01-29 | Outpatient (CLI) | payer MEDICARE ==
--- NOTE | 2023-01-29 12:39 | US ---
EXAMINATION TYPE: US thyroid st tissue head/neck DATE OF EXAM: 01/29/2023 COMPARISON: Thyroid ultrasound 09/21/2022 CLINICAL INDICATION: Female, 67 years old with history of E03.9 hypothyroidism, R94.6 abn labs; f/u e xam GLAND SIZE: Right Lobe: 4.2 x 1.7 x 1.4 cm Overall Parenchyma: homogeneous Left Lobe: 3.3 x 0.8 x 1.2 cm Overall Parenchyma: heterogenous Isthmus Thickness: 0.3 cm NODULES RIGHT: # of nodules measured on right: 0 LEFT: # of nodules measured on left: 1 1. 0.8 X 0.6 x 0.6 cm, upper, solid or almost completely solid, isoechoic nodule, which is wider lala n tall, with smooth margins, without echogenic foci. TR 3. Prior size: 0.9 x 0.6 x 0.5 cm ISTHMUS: # of nodules measured in the isthmus: 0 Bilateral neck scanned, no evidence of lymphadenopathy. IMPRESSION: Stable left thyroid lobe subcentimeter nodule. No new or enlarging thyroid nodules. ACR TI-RADS LEVEL: TR-RADS 3: Follow if > 1.5 cm, FNA if > 2.5 cm *Highest TI-RADS level nodule reported
== END | disposition home or self-care (01) ==
LOC: RADUSWWP 12:05
PROVIDERS: ATTEND Family Medicine
DX: E04.1 Nontoxic single thyroid nodule (principal); E03.9 Hypothyroidism, unspecified; R94.6 Abnormal results of thyroid function studies
CPT/HCPCS: 76536